=== PATIENT | female | born 1975 | race African-American/Black ===

== ENCOUNTER 2019-09-05 16:36 | Inpatient (IN) | payer MEDICAID, OTHER ==
[~2019-09-05] VITALS: Ht 157.5 cm; Wt 75.3 kg
[2019-09-05 17:19] LABS: BASOPHILS % (AUTO) 1.8 % (0.0-2.0); EOSINOPHILS % (AUTO) 4.6 % (1.0-6.0); HEMATOCRIT 36.9 % (36-46); HEMOGLOBIN 11.6 g/dL (12.0-16.0); LYMPHOCYTES # (AUTO) 2.1 K/uL (1.0-4.8); LYMPHOCYTES % (AUTO) 47.2 % (22.0-44.0); MEAN CORPUSCULAR HEMOGLOBIN 22.5 pg (26.0-34.0); MEAN CORPUSCULAR HGB CONC 31.3 G/dL (31.0-37.0); MEAN CORPUSCULAR VOLUME 72 fL (80-100); MONOCYTES # (AUTO) 0.3 K/uL (0.1-1.0); MONOCYTES % (AUTO) 6.7 % (2.0-9.0); NEUTROPHILS # (AUTO) 1.8 K/uL (1.8-7.7); NEUTROPHILS % (AUTO) 39.7 % (40.0-70.0); PLATELET COUNT (AUTO) 214 K/uL (150-450); RED BLOOD CELL COUNT(AUTO) 5.14 MIL/uL (4.00-5.20); RED CELL DISTRIBUTION WIDTH 15.1 % (11.5-14.5)
[2019-09-05 17:39] LABS: ANION GAP 7 mmol/L (8-16); CALCIUM, TOTAL 9.5 mg/dL (8.8-10.5); CARBON DIOXIDE 28 mmol/L (22-29); CHLORIDE 104 mmol/L (98-107); CREATININE 0.77 mg/dL (0.60-1.30); GLOMERULAR FILTR. RATE CALC > 60 mL/min (>60); GLUCOSE,RANDOM 97 mg/dL (70-110); POTASSIUM 4.2 mmol/L (3.5-5.1); SODIUM SERUM 139 mmol/L (136-145); UREA NITROGEN, BLOOD 8 mg/dL (7-18)
[2019-09-05 17:44] LABS: ALANINE AMINOTRANSFERASE 20 U/L (12-78); ALBUMIN 3.7 g/dL (3.4-5.0); ALKALINE PHOSPHATASE 67 U/L (46-116); ASPARTATE AMINOTRANSFERASE 17 U/L (15-37); BILIRUBIN,TOTAL 0.3 mg/dL (0.1-1.0); TOTAL PROTEIN, SERUM 7.9 g/dL (6.4-8.2)
[2019-09-05] MEDS ORDERED: MetroNIDAZOLE 250 MG TABLET PO ONE (18:30)
[2019-09-05] MEDS ORDERED: SERT50TA12 PO (18:38)
[2019-09-05] MEDS ORDERED: RISP.5 PO (18:38)
[2019-09-05] MEDS ORDERED: ONDANSETRON HCL 4 MG/2 ML VIAL IVP PRN (20:00)
[2019-09-05] MEDS ORDERED: ACETAMINOPHEN 325 MG TABLET PO PRN ×2 (20:00→20:45)
[2019-09-05] MEDS ORDERED: 0.9% SODIUM CHLORIDE 10 ML SYRINGE IVP PRN (20:00)
[2019-09-05] MEDS ORDERED: ZOLPIDEM TARTRATE 10 MG TABLET PO PRN (20:15)
[2019-09-05] MEDS ORDERED: QUEtiapine FUMARATE 100 MG TABLET PO PRN (20:15)
[2019-09-05] MEDS ORDERED: LORazepam 2 MG TABLET PO PRN (20:15)
[2019-09-05] MEDS ORDERED: NICOTINE 14 MG/24 HOUR PATCH TD PRN (20:45)
[2019-09-05] MEDS ORDERED: MAG HYDROX/AL HYDROX/SIMETH ES 30 ML SUSPENSION UDCUP PO PRN (20:45)
[2019-09-05] MEDS ORDERED: LOPERAMIDE HCL 2 MG CAPSULE PO PRN (20:45)
[2019-09-05] MEDS ORDERED: ALBUTEROL SULFATE HFA 90 MCG/PUFF 8 GM INHALER IH PRN (20:45)
[2019-09-05] MEDS ORDERED: PETROLATUM,WHITE 28 GM JELLY TP PRN (20:45)
[2019-09-05] MEDS ORDERED: DOCUSATE SODIUM 100 MG CAPSULE PO PRN (20:45)
[2019-09-05] MEDS ORDERED: GuaiFENesin/D-METHORPHAN [SUGAR-FREE] 200-20MG/10 ML SYRUP UDCUP PO PRN (20:45)
[2019-09-05] MEDS ORDERED: ONDANSETRON HCL 4 MG TABLET PO PRN (20:45)
[2019-09-05] MEDS ORDERED: IBUPROFEN 400 MG TABLET PO PRN (20:45)
[2019-09-05] MEDS ORDERED: MAGNESIUM HYDROXIDE SUSPENSION 30 ML UDCUP PO PRN (20:45)
[2019-09-05] MEDS ORDERED: CloNIDine HCL 0.1 MG TABLET PO PRN (20:45)
[2019-09-06 00:17] VITALS: BP 136/92
[2019-09-06] MEDS ORDERED: PNEUMOCOCCAL VACCINE POLYVALENT 0.5 ML VIAL [PPSV23] IM ONE (00:45)
[2019-09-06] MEDS ORDERED: INFLUENZA VIRUS VACCINE QVS 2019-20 (3YR+)/PF 60 MCG/0.5 ML SYRINGE IM ONE (00:45)
[2019-09-06 08:15] VITALS: BP 134/80
[2019-09-06 08:51] LABS: CHOL/HDL RATIO 3.6 (3.9-5.7); THYROID STIMULATING HORMONE 1.48 uIU/mL (0.36-3.74)
[2019-09-06] MEDS ORDERED: MetroNIDAZOLE 500 MG TABLET PO SCH (10:45)
[2019-09-06] MEDS: RisperiDONE 1 MG TABLET PO SCH ×2 (13:00→16:33)
[2019-09-06] MEDS: SERTRALINE HCL 50 MG TABLET PO SCH (13:00)
[2019-09-06 16:01] VITALS: BP 109/69
[2019-09-06] MEDS: MetroNIDAZOLE 500 MG TABLET PO SCH ×2 (16:33→20:22)
[2019-09-07 02:06] VITALS: BP 124/70
[2019-09-07 08:15] VITALS: BP 110/62
[2019-09-07] MEDS: SERTRALINE HCL 50 MG TABLET PO SCH (08:54)
[2019-09-07] MEDS: RisperiDONE 1 MG TABLET PO SCH ×2 (08:54→16:44)
[2019-09-07] MEDS: MetroNIDAZOLE 500 MG TABLET PO SCH ×2 (08:54→16:44)
[2019-09-07 16:17] VITALS: BP 125/80
[2019-09-08 02:08] VITALS: BP 102/66
[2019-09-08] MEDS: RisperiDONE 1 MG TABLET PO SCH ×2 (08:05→16:48)
[2019-09-08] MEDS: SERTRALINE HCL 50 MG TABLET PO SCH (08:05)
[2019-09-08] MEDS: MetroNIDAZOLE 500 MG TABLET PO SCH ×2 (08:06→16:48)
[2019-09-08 08:15] VITALS: BP 108/62
[2019-09-08 16:01] VITALS: BP 116/84
[2019-09-08] MEDS ORDERED: RisperiDONE 1 MG TABLET PO SCH (17:00)
[2019-09-09 03:46] VITALS: BP 105/74
[2019-09-09 08:21] VITALS: BP 129/72
[2019-09-09] MEDS: MetroNIDAZOLE 500 MG TABLET PO SCH (09:37)
[2019-09-09] MEDS: RisperiDONE 1 MG TABLET PO SCH (09:37)
[2019-09-09] MEDS: SERTRALINE HCL 50 MG TABLET PO SCH (09:37)
[2019-09-09] MEDS ORDERED: METR500 PO (12:42)
== END 2019-09-09 14:45 | disposition home or self-care (01) | DRG 750 ==
LOC: EMS 16:36 → B3A 20:42 → EMS 21:18
PROVIDERS: ADMIT Psychiatry & Neurology Psychiatry; ATTEND Psychiatry & Neurology Psychiatry
DX: F25.9 Schizoaffective disorder, unspecified (principal); D64.9 Anemia, unspecified; F10.10 Alcohol abuse, uncomplicated; I10 Essential (primary) hypertension; F19.10 Other psychoactive substance abuse, uncomplicated
CPT/HCPCS: 84443; G0480